=== PATIENT | female | born 1945 | race American Indian/Alaskan Native ===

== ENCOUNTER 2018-03-20 12:39 | Emergency (ER) | payer MEDICARE ==
[2018-03-20 14:05] VITALS: BP 139/78
[2018-03-20] MEDS ORDERED: Meclizine 25 MG Tab PO ONE (14:57)
--- NOTE | 2018-03-20 15:13 | EDM.PDOC ---
ED HPI GENERAL MEDICAL PROBLEM - General Chief Complaint: Lower Extremity Injury/Pain Stated Complaint: FALL VIA NORTH Time Seen by Provider: 03/20/18 14:40 Source of Information: Reports: Patient History Limitations: Reports: No Limitations - History of Present Illness INITIAL COMMENTS - FREE TEXT/NARRATIVE: pt has a history of recurrent vertigo. She had an episode yesterday AM and she fell and she twisted her left ankle. She has had difficulty walking on it and she has noted increased swelling. She also was feeling more of the vertigo this am. Onset: Other ( yesterday. ) Duration: Hour(s): Location: Reports: Head, Lower Extremity, Left Quality: Reports: Sharp Associated Symptoms: Reports: Other ( vertigo. She is not sure if she passed out when she fell. Her states she answered right after the fall. ) - Related Data Allergies Allergy/AdvReac Type Severity Reaction Status Date / Time Zmqplij-Itl-Eth Reductase Allergy Intermediate Muscle Verified 03/20/18 12:54 Inhibitor Aches atorvastatin Allergy Cannot Verified 03/20/18 12:54 Remember ezetimibe Allergy Muscle Verified 03/20/18 12:54 Aches fluvastatin sodium Allergy Cannot Verified 03/20/18 12:54 [From Lescol] Remember pravastatin Allergy Cannot Verified 03/20/18 12:54 Remember simvastatin Allergy Cannot Verified 03/20/18 12:54 Remember Home Meds: Home Meds Citalopram Hydrobromide [Celexa] 40 mg PO DAILY 07/25/13 [History] Diltiazem HCl [Cartia Xt] 240 mg PO DAILY 07/25/13 [History] Furosemide [Lasix] 20 mg PO DAILY 07/25/13 [History] Levothyroxine Sodium [Synthroid] 88 mcg PO DAILY 07/25/13 [History] Lisinopril 40 mg PO DAILY 07/25/13 [History] Multivitamin [Multi-Vitamin Daily] 1 each PO DAILY 07/25/13 [History] Nitroglycerin [Nitrostat] 0.4 mg SL .Q5MIN PRN 07/25/13 [History] Pantoprazole [ProTONIX Granules] 40 mg PO DAILY 07/25/13 [History] Potassium Chloride [Klor-Con M20] 20 meq PO DAILY 07/25/13 [History] Rosuvastatin [Crestor] 5 mg PO DAILY 07/25/13 [History] Cholecalciferol (Vitamin D3) [Vitamin D3] 2,000 unit PO DAILY 04/26/14 [History] Cyanocobalamin (Vitamin B12) [Vitamin B12] 1,000 mcg SL DAILY 11/13/14 [History] Rivaroxaban [Xarelto] 20 mg PO DAILY 05/04/15 [History] Metoprolol Tartrate [Lopressor] 12.5 mg PO BID 09/19/15 [History] Albuterol [Ventolin HFA] 2 puff .XX Q4H PRN 10/18/17 [History] Benzonatate [Tessalon Perle] 100 - 200 mg PO TID PRN 10/18/17 [History] Betamethasone/Clotrimazole [Lotrisone] 1 applic TOP BID PRN 10/18/17 [History] Cetirizine [ZyrTEC] 10 mg PO DAILY 10/18/17 [History] Hydrocodone/Acetaminophen [Hydrocodon-Acetaminophn 10-325] 1 tab PO Q4H [History] Vit C/E/Zn/Coppr/Lutein/Zeaxan [Preservision Areds 2 Softgel] 1 tab PO BID 10/18 [History] Past Medical History HEENT History: Reports: Cataract, Hard of Hearing, Impaired Vision Cardiovascular History: Reports: Afib, CAD, High Cholesterol, Hypertension, Stents Gastrointestinal History: Reports: GERD, Helicobacter Pylori [employer] History: Reports: Fibroids, Musculoskeletal History: Reports: Arthritis, Osteoarthritis, Other (See Below) Other Musculoskeletal History: bursitis Psychiatric History: Reports: Anxiety, Depression Endocrine/Metabolic History: Reports: Diabetes, Type II, Hypoparathyroidism, Obesity/BMI 30+ Hematologic History: Reports: B12 Deficiency Dermatologic History: Reports: Other (See Below) Other Dermatologic History: rash under pann. - Infectious Disease History Infectious Disease History: Reports: Chicken Pox - Past Surgical History HEENT Surgical History: Reports: Cataract Surgery Cardiovascular Surgical History: Reports: Coronary Artery Stent GI Surgical History: Reports: Appendectomy, Bariatric Procedure, Cholecystectomy , Colonoscopy, EGD Female Surgical History: Reports: Breast Biopsy, Hysterectomy Musculoskeletal Surgical History: Reports: Arthroscopic Knee, Shoulder Surgery Social & Family History - Tobacco Use Smoking Status *Q: Never Smoker - Caffeine Use Caffeine Use: Reports: Coffee, Soda Review of Systems - Review of Systems Review Of Systems: See Below Constitutional: Reports: No Symptoms Eyes: Reports: No Symptoms Ears: Reports: No Symptoms Nose: Reports: No Symptoms Mouth/Throat: Reports: No Symptoms Respiratory: Reports: No Symptoms Cardiovascular: Reports: No Symptoms GI/Abdominal: Reports: No Symptoms Musculoskeletal: Reports: Other (pt has pain in her left ankle with considerable swelling laterally of the ankle. ) Skin: Reports: No Symptoms Neurological: Reports: Other (pt has a history of recurrent vwertigo. ) Psychiatric: Reports: No Symptoms ED EXAM, GENERAL - Physical Exam Exam: See Below Free Text/Narrative:: pt arrived with swelling lateraally of the ankle,. She is uncomfortable when she tries to walk. She has been dealing with recurrent vertigo. Exam Limited By: No Limitations General Appearance: Alert, Mild Distress Ears: Normal TMs Nose: Normal Inspection Throat/Mouth: Normal Inspection Neck: Normal Inspection Respiratory/Chest: No Respiratory Distress Cardiovascular: Regular Rate, Rhythm GI/Abdominal: Soft, Non-Tender (Female) Exam: Deferred Rectal (Female) Exam: Deferred Back Exam: CVA Tenderness (L) Extremities: Other ( left ankle shows marked swelling and tenderness laterally. ) Neurological: Alert, Oriented, Normal Cognition, Other (pt is having vertigo on and off. ) Psychiatric: Normal Affect Course - Vital Signs Last Recorded V/S: Last Vital Signs Temp 36.6 C 03/20/18 15:44 Pulse 80 03/20/18 15:44 Resp 16 03/20/18 15:44 BP 139/78 03/20/18 15:44 Pulse Ox 97 03/20/18 15:44 - Orders/Labs/Meds Labs: Laboratory Tests 03/20/18 03/20/18 03/20/18 Range/Units 13:31 13:31 15:08 WBC 8.6 (4.5-11.0) K/uL RBC 4.36 (3.30-5.50) M/uL Hgb 12.5 (12.0-15.0) g/dL Hct 37.1 (36.0-48.0) % MCV 85 (80-98) fL MCH 29 (27-31) pg MCHC 34 (32-36) % Plt Count 262 (150-400) K/uL Neut % (Auto) 71 H (36-66) % Lymph % (Auto) 18 L (24-44) % Powell % (Auto) 9 H (2-6) % Eos % (Auto) 2 (2-4) % Baso % (Auto) 0 (0-1) % Sodium 139 L (140-148) mmol/L Potassium 4.1 (3.6-5.2) mmol/L Chloride 102 (100-108) mmol/L Carbon Dioxide 29 (21-32) mmol/L Anion Gap 12.1 (5.0-14.0) mmol/L BUN 9 (7-18) mg/dL Creatinine 0.8 (0.6-1.0) mg/dL Est Cr Clr Drug Dosing 48.06 mL/min Estimated GFR (MDRD) > 60 (>60) Glucose 122 H (74-106) mg/dL Calcium 9.0 (8.5-10.1) mg/dL Total Bilirubin 0.4 (0.2-1.0) mg/dL AST 19 (15-37) U/L ALT 25 D (12-78) U/L Alkaline Phosphatase 108 (46-116) U/L Total Protein 7.1 (6.4-8.2) g/dL Albumin 3.5 (3.4-5.0) g/dL Globulin 3.6 H (2.3-3.5) g/dL Albumin/Globulin Ratio 1.0 L (1.2-2.2) Urine Color Yellow Urine Appearance Clear Urine pH 7.0 (4.5-8.0) Ur Specific Barnum 1.005 L (1.008-1.030) Urine Protein Negative (NEGATIVE) mg/dL Urine Glucose (UA) Normal (NEGATIVE) mg/dL Urine Ketones Negative (NEGATIVE) mg/dL Urine Occult Blood Negative (NEGATIVE) Urine Nitrite Negative (NEGATIVE) Urine Bilirubin Negative (NEGATIVE) Urine Urobilinogen Normal (NORMAL) mg/dL Ur Leukocyte Esterase Small (NEGATIVE) Urine RBC 0-5 (0-5) Urine WBC 5-10 H (0-5) Ur Epithelial Cells Few Amorphous Sediment Rare Urine Bacteria Not seen Urine Mucus Not seen Meds: Medications Discontinued Medications Generic Name Dose Route Start Last Admin Trade Name Freq PRN Reason Stop Dose Admin Meclizine HCl 25 mg 03/20/18 14:57 03/20/18 15:36 Antivert PO 03/20/18 14:58 25 mg ONETIME ONE Administration - Re-Assessments/Exams Free Text/Narrative Re-Assessment/Exam: 03/20/18 15:34 xrays were obtained which did not reveal fractures, Her lab work was normal. She was placed in a cam walker. Her vertigo will be treated with antivert. Departure - Departure Time of Disposition: 15:35 Disposition: Home, Self-Care 01 Condition: Fair Clinical Impression: Recurrent vertigo, Sprain of left ankle - Discharge Information Instructions: Vertigo, [id number], Ankle Sprain, [id number] Referrals: PCP,None [Primary Care Provider] - Forms: ED Department Discharge Care Plan Goals: minimal wt bearin, cool pack to the lateral ankle even with splint on. tylenol or motrin for pain, antivert 25 tid for the next 2-3 days for vertigo. follow up with regular ,
--- NOTE | 2018-03-21 14:00 | CR ---
Left ankle and foot. There is lateral soft tissue swelling at the ankle. The ankle mortise appears intact. There is no fracture of the ankle. There is evidence for a nondisplaced fracture at the base of the second metatarsal of the foot. No significant displacement is evident. There is edema of the forefoot. Impression: 1. Fracture base of the second metatarsal. Further evaluation with CT could be performed to evaluate the possibility of a Lisfranc fracture. 2. Lateral soft tissue swelling of the ankle.
== END 2018-03-20 15:53 | disposition home or self-care (01) ==
LOC: JP.ED 12:39
DX: S93.402A Sprain of unspecified ligament of left ankle, initial encounter (principal); R42 Dizziness and giddiness; I10 Essential (primary) hypertension; E11.9 Type 2 diabetes mellitus without complications; E66.9 Obesity, unspecified; X50.1XXA Overexertion from prolonged static or awkward postures, initial encounter; Z79.899 Other long term (current) drug therapy; Z88.8 Allergy status to other drugs, medicaments and biological substances
CPT/HCPCS: 36415; 73610; 73630; 80053; 81001; 85025; 99284; A9270

== ENCOUNTER 2019-01-04 16:43 | Emergency (ER) | payer MEDICARE ==
--- NOTE | 2019-01-04 17:46 | EDM.PDOC ---
ED HPI GENERAL MEDICAL PROBLEM - General Chief Complaint: General Stated Complaint: SENT OVER FROM CLINIC AFTER EKG Time Seen by Provider: 01/04/19 17:25 Source of Information: Reports: Patient, Provider History Limitations: Reports: No Limitations - History of Present Illness INITIAL COMMENTS - FREE TEXT/NARRATIVE: 73-year-old female with known coronary artery disease presented to the clinic today to establish care with a primary provider. She mentioned that over the last 1-2 days she seems to be having a little more chest pressure with activity. An EKG was done which was abnormal so she was sent to the emergency room. Comparing the EKG to a previous EKG of 2015 here in the emergency room it looks very similar. She is not currently having any discomfort. When she gets pain, she gets "a little" short of breath but no diaphoresis or nausea. Onset: Unknown/Unsure (Symptoms have increased for the last few days) Location: Reports: Chest Associated Symptoms: Reports: Chest Pain, Shortness of Breath, Other (Some leg pain as well). Denies: Cough, Nausea/Vomiting, Weakness denies Pain Score (Numeric/FACES): 0 - Related Data Allergies Allergy/AdvReac Type Severity Reaction Status Date / Time Xgbxfkw-Ctw-Srd Reductase Allergy Intermediate Muscle Verified 01/04/19 16:56 Inhibitor Aches atorvastatin Allergy Cannot Verified 01/04/19 16:56 Remember ezetimibe Allergy Muscle Verified 01/04/19 16:56 Aches fluvastatin sodium Allergy Cannot Verified 01/04/19 16:56 [From Lescol] Remember pravastatin Allergy Cannot Verified 01/04/19 16:56 Remember simvastatin Allergy Cannot Verified 01/04/19 16:56 Remember Home Meds: Home Meds Citalopram Hydrobromide [Celexa] 40 mg PO DAILY 07/25/13 [History] Diltiazem HCl [Cartia Xt] 240 mg PO DAILY 07/25/13 [History] Furosemide [Lasix] 20 mg PO DAILY 07/25/13 [History] Levothyroxine Sodium [Synthroid] 88 mcg PO DAILY 07/25/13 [History] Lisinopril 40 mg PO DAILY 07/25/13 [History] Multivitamin [Multi-Vitamin Daily] 1 each PO DAILY 07/25/13 [History] Nitroglycerin [Nitrostat] 0.4 mg SL .Q5MIN PRN 07/25/13 [History] Pantoprazole [ProTONIX Granules] 40 mg PO DAILY 07/25/13 [History] Potassium Chloride [Klor-Con M20] 20 meq PO DAILY 07/25/13 [History] Rosuvastatin [Crestor] 5 mg PO DAILY 07/25/13 [History] Cholecalciferol (Vitamin D3) [Vitamin D3] 2,000 unit PO DAILY 04/26/14 [History] Cyanocobalamin (Vitamin B12) [Vitamin B12] 1,000 mcg SL DAILY 11/13/14 [History] Rivaroxaban [Xarelto] 20 mg PO DAILY 05/04/15 [History] Metoprolol Tartrate [Lopressor] 12.5 mg PO BID 09/19/15 [History] Albuterol [Ventolin HFA] 2 puff .XX Q4H PRN 10/18/17 [History] Benzonatate [Tessalon Perle] 100 - 200 mg PO TID PRN 10/18/17 [History] Betamethasone/Clotrimazole [Lotrisone] 1 applic TOP BID PRN 10/18/17 [History] Cetirizine [ZyrTEC] 10 mg PO DAILY 10/18/17 [History] Vit C/E/Zn/Coppr/Lutein/Zeaxan [Preservision Areds 2 Softgel] 1 tab PO BID 10/18 [History] Past Medical History HEENT History: Reports: Cataract, Hard of Hearing, Impaired Vision Cardiovascular History: Reports: Afib, CAD, High Cholesterol, Hypertension, Stents Gastrointestinal History: Reports: GERD, Helicobacter Pylori [employer] History: Reports: Fibroids, Musculoskeletal History: Reports: Arthritis, Osteoarthritis, Other (See Below) Other Musculoskeletal History: bursitis Psychiatric History: Reports: Anxiety, Depression Endocrine/Metabolic History: Reports: Diabetes, Type II, Hypoparathyroidism, Obesity/BMI 30+ Hematologic History: Reports: B12 Deficiency Dermatologic History: Reports: Other (See Below) Other Dermatologic History: rash under pann. - Infectious Disease History Infectious Disease History: Reports: Chicken Pox - Past Surgical History HEENT Surgical History: Reports: Cataract Surgery Cardiovascular Surgical History: Reports: Coronary Artery Stent GI Surgical History: Reports: Appendectomy, Bariatric Procedure, Cholecystectomy , Colonoscopy, EGD Female Surgical History: Reports: Breast Biopsy, Hysterectomy Musculoskeletal Surgical History: Reports: Arthroscopic Knee, Shoulder Surgery Social & Family History - Tobacco Use Smoking Status *Q: Never Smoker Second Hand Smoke Exposure: No - Caffeine Use Caffeine Use: Reports: Coffee, Soda - Recreational Drug Use Recreational Drug Use: No ED ROS GENERAL - Review of Systems Review Of Systems: See Below Constitutional: Denies: Fever, Chills, Malaise Respiratory: Reports: Shortness of Breath. Denies: Wheezing, Cough, Sputum Cardiovascular: Reports: Chest Pain, Dyspnea on Exertion (Intermittent and mild) GI/Abdominal: Denies: Abdominal Pain, Nausea, Vomiting Skin: Reports: No Symptoms Neurological: Denies: Dizziness, Headache Psychiatric: Reports: No Symptoms ED EXAM, GENERAL - Physical Exam Exam: See Below Exam Limited By: No Limitations General Appearance: Alert, No Apparent Distress Head: Atraumatic Respiratory/Chest: No Respiratory Distress, Lungs Clear Cardiovascular: Regular Rate, Rhythm GI/Abdominal: Soft, Non-Tender, Other (Believe there is a nontender ventral hernia near the umbilicus) Extremities: Other (Just a trace of lower extremity edema, symmetric) Neurological: Alert, Oriented Course - Vital Signs Last Recorded V/S: Last Vital Signs Temp 97.0 F 01/04/19 17:07 Pulse 76 01/04/19 17:51 Resp 16 01/04/19 17:51 BP 134/80 01/04/19 17:51 Pulse Ox 97 01/04/19 17:51 - Orders/Labs/Meds Labs: Laboratory Tests 01/04/19 01/04/19 01/04/19 Range/Units 17:41 17:41 17:41 WBC 8.5 (4.5-11.0) K/uL RBC 4.71 (3.30-5.50) M/uL Hgb 13.1 (12.0-15.0) g/dL Hct 40.5 (36.0-48.0) % MCV 86 (80-98) fL MCH 28 (27-31) pg MCHC 32 (32-36) % Plt Count 288 (150-400) K/uL Neut % (Auto) 64 (36-66) % Lymph % (Auto) 27 (24-44) % Grimes % (Auto) 8 H (2-6) % Eos % (Auto) 2 (2-4) % Baso % (Auto) 0 (0-1) % Sodium 139 L (140-148) mmol/L Potassium 4.0 (3.6-5.2) mmol/L Chloride 101 (100-108) mmol/L Carbon Dioxide 28 (21-32) mmol/L Anion Gap 14.0 (5.0-14.0) mmol/L BUN 12 (7-18) mg/dL Creatinine 0.9 (0.6-1.0) mg/dL Est Cr Clr Drug Dosing 42.72 mL/min Estimated GFR (MDRD) > 60 (>60) Glucose 117 H (74-106) mg/dL Calcium 9.1 (8.5-10.1) mg/dL Total Bilirubin 0.3 (0.2-1.0) mg/dL AST 23 (15-37) U/L ALT 25 (12-78) U/L Alkaline Phosphatase 121 H (46-116) U/L Troponin I 0.049 (0.000-0.056) ng/mL Total Protein 7.3 (6.4-8.2) g/dL Albumin 3.8 (3.4-5.0) g/dL Globulin 3.5 (2.3-3.5) g/dL Albumin/Globulin Ratio 1.1 L (1.2-2.2) - Re-Assessments/Exams Free Text/Narrative Re-Assessment/Exam: 01/04/19 17:50 EKG was reviewed from the clinic and compared to previous EKGs here and they are very similar if not identical. She has not had any labs for the last 5-6 months, so CBC, CMP and troponin were obtained. She is already scheduled for a stress test next week, if the labs are reassuring she can probably have the stress test done as scheduled unless worsening. 01/04/19 18:13 Patient remained asymptomatic while in the emergency room, CBC and chest x-ray were normal. 01/04/19 18:46 Extended chemistry panel and troponin were also within normal limits. Patient did not want to have any further evaluation at this time. She was provided with fresh sublingual nitroglycerin, and agreed to return if she needs to use nitroglycerin for chest pain over the next 48 hours. Otherwise she can go to her stress test as scheduled. Departure - Departure Time of Disposition: 19:03 Disposition: Home, Self-Care 01 Clinical Impression: Stable angina - Discharge Information Instructions: Angina Pectoris, [id number] Referrals: Rosario Alvarenga PA-C [Primary Care Provider] - Forms: ED Department Discharge Care Plan Goals: Continue your current medications, use nitroglycerin if chest pressure with activity and if it resolves consistently but is recurring return to the emergency room. Also if it is persistent and worsening or shortness of breath and does not respond to nitroglycerin, recheck in the emergency room. Otherwise stress test as scheduled.
[2019-01-04 18:10] VITALS: BP 134/80; PULSE 76
--- NOTE | 2019-01-04 18:36 | CRLCR ---
INDICATION: For dyspnea COMPARISON: 11/13/2014 FINDINGS: PA and lateral views of the chest were obtained. The lungs remain clear. No focal or diffuse infiltrates are present. The heart remains normal in size. The mediastinum is normal in appearance. Components of a left reverse total shoulder prosthesis are now present, with no sign of fracture, loosening, or dislocation. Again seen are surgical clips in the left upper quadrant. IMPRESSION: No active disease seen in the chest. Dictated by Nabil Aguilar MD @ Jan 04 2019 6:33PM Signed by Dr. Nabil Aguilar @ Jan 04 2019 6:34PM
== END 2019-01-04 18:50 | disposition home or self-care (01) ==
LOC: JP.ED 16:43
DX: I20.8 Other forms of angina pectoris (principal); E78.00 Pure hypercholesterolemia, unspecified; I10 Essential (primary) hypertension; K21.9 Gastro-esophageal reflux disease without esophagitis; F41.9 Anxiety disorder, unspecified; F32.9 Major depressive disorder, single episode, unspecified; E20.9 Hypoparathyroidism, unspecified; E11.9 Type 2 diabetes mellitus without complications; Z88.8 Allergy status to other drugs, medicaments and biological substances; Z79.899 Other long term (current) drug therapy
CPT/HCPCS: 36415; 71046; 80053; 84484; 85025; 99283; 99285-25

== ENCOUNTER 2022-06-08 10:33 | Emergency (ER) | payer MEDICARE ==
[2022-06-08 12:01] VITALS: BP 177/76; PULSE 66
== END 2022-06-08 12:10 | disposition home or self-care (01) ==
LOC: JP.ED 10:33
DX: M26.603 Bilateral temporomandibular joint disorder, unspecified (principal); I25.10 Atherosclerotic heart disease of native coronary artery without angina pectoris; I10 Essential (primary) hypertension; E11.9 Type 2 diabetes mellitus without complications; E66.9 Obesity, unspecified; Z68.38 Body mass index [BMI] 38.0-38.9, adult; Z88.8 Allergy status to other drugs, medicaments and biological substances; Z88.6 Allergy status to analgesic agent; Z79.899 Other long term (current) drug therapy; Z90.49 Acquired absence of other specified parts of digestive tract; Z90.710 Acquired absence of both cervix and uterus
CPT/HCPCS: 99283

== ENCOUNTER 2025-01-13 10:56 | Emergency (ER) | payer MEDICARE ==
[2025-01-13 12:24] VITALS: BP 139/73; PULSE 84
== END 2025-01-13 12:56 | disposition home or self-care (01) ==
LOC: JP.ED 10:56
DX: S00.83XA Contusion of other part of head, initial encounter (principal); S20.219A Contusion of unspecified front wall of thorax, initial encounter; S00.11XA Contusion of right eyelid and periocular area, initial encounter; I10 Essential (primary) hypertension; K21.9 Gastro-esophageal reflux disease without esophagitis; E11.9 Type 2 diabetes mellitus without complications; E20.9 Hypoparathyroidism, unspecified; E66.9 Obesity, unspecified; Z79.890 Hormone replacement therapy; Z79.899 Other long term (current) drug therapy; Z88.8 Allergy status to other drugs, medicaments and biological substances; Z79.01 Long term (current) use of anticoagulants; Z95.5 Presence of coronary angioplasty implant and graft; Z90.49 Acquired absence of other specified parts of digestive tract; Z98.84 Bariatric surgery status; Z90.710 Acquired absence of both cervix and uterus; W01.0XXA Fall on same level from slipping, tripping and stumbling without subsequent striking against object, initial encounter
CPT/HCPCS: 70450; 70486; 99283

== ENCOUNTER 2025-02-17 09:16 | Emergency (ER) | payer MEDICARE ==
[2025-02-17 09:53] LABS: BASOPHILS ABSOLUTE AUTO 0.02 K/uL (0.00-0.10); BASOPHILS PERCENT AUTO 0.3 % (0.1-1.3); EOSINOPHILS ABSOLUTE AUTO 0.05 K/uL (0.00-0.40); EOSINOPHILS PERCENT AUTO 0.8 % (0.0-5.4); IMMATURE GRAN ABSOLUTE AUTO 0.04 K/uL (0.00-0.23); IMMATURE GRAN PERCENT AUTO 0.6 % (0.0-0.7); LYMPHOCYTES ABSOLUTE AUTO 1.21 K/uL (0.8-3.3); LYMPHOCYTES PERCENT AUTO 19.4 % (11.4-47.7); MONOCYTES ABSOLUTE AUTO 0.38 K/uL (0.20-0.90); MONOCYTES PERCENT AUTO 6.1 % (3.3-12.6); NEUTROPHILS ABSOLUTE AUTO 4.55 K/uL (1.0-7.6); NEUTROPHILS PERCENT AUTO 72.8 % (40.0-78.1); PLATELET COUNT,PLT 284 K/uL (130-375); RED BLOOD CELL COUNT 4.27 M/uL (3.77-5.24); WHITE BLOOD CELL COUNT,WBC 6.3 K/uL (3.2-11.0)
[2025-02-17 10:24] LABS: A/G RATIO 1.0 (1.2-2.2); ALANINE AMINOTRANSFERASE,ALT 25 U/L (12-78); ASPARTATE AMNIOTRANSFERASE,AST 22 U/L (15-37); BILIRUBIN TOTAL 0.3 mg/dL (0.2-1.0); BLOOD UREA NITROGEN,BUN 8 mg/dL (7-18); CARBON DIOXIDE,CO2 26 mmol/L (21-32); CHLORIDE,CL 101 mmol/L (100-108); CREATININE 0.7 mg/dL (0.6-1.0); EST CRCL DRUG DOSING (CG) 49.01 mL/min; ESTIMATED GFR 86 mL/min (>60); GLUCOSE RANDOM 131 mg/dL (74-106); POTASSIUM,K 3.8 mmol/L (3.6-5.2); PROTEIN TOTAL,TP 7.3 g/dL (6.4-8.2); SODIUM,NA 135 mmol/L (140-148)
[2025-02-17 13:03] VITALS: BP 133/78; PULSE 84
== END 2025-02-17 13:45 ==
LOC: JP.ED 09:16
DX: I21.4 Non-ST elevation (NSTEMI) myocardial infarction (principal); I10 Essential (primary) hypertension; E78.00 Pure hypercholesterolemia, unspecified; K21.9 Gastro-esophageal reflux disease without esophagitis; E11.9 Type 2 diabetes mellitus without complications; E66.9 Obesity, unspecified; Z98.84 Bariatric surgery status; Z90.49 Acquired absence of other specified parts of digestive tract; Z90.710 Acquired absence of both cervix and uterus; Z95.5 Presence of coronary angioplasty implant and graft; Z88.8 Allergy status to other drugs, medicaments and biological substances; Z79.01 Long term (current) use of anticoagulants; Z79.890 Hormone replacement therapy; Z79.899 Other long term (current) drug therapy; Z68.37 Body mass index [BMI] 37.0-37.9, adult
CPT/HCPCS: 36415; 71045; 80053; 84484; 85025; 93005; 93010; 99285; A9270